=== PATIENT | male | born 1955 | race Two or more races ===

== ENCOUNTER 2019-09-25 07:22 | Emergency (ER) | payer OTHER ==
[~2019-09-25] VITALS: Ht 177.8 cm; Wt 108.9 kg
[2019-09-25] MEDS ORDERED: LEVSIN/SL0.125 MG SL (12:47)
[2019-09-25] MEDS ORDERED: PEPCID AC20 MG PO (12:47)
[2019-09-25] MEDS ORDERED: CIPRO500 MG PO (12:47)
[2019-09-25] MEDS ORDERED: FLAGYL500MG PO (12:47)
== END 2019-09-25 13:27 | disposition home or self-care (01) ==
LOC: ER 07:22
DX: K57.92 Diverticulitis of intestine, part unspecified, without perforation or abscess without bleeding (principal)

== ENCOUNTER 2023-03-16 09:20 | Inpatient (IN) | payer OTHER ==
[~2023-03-16 09:20] MED LIST: CIPRO500 MG PO; FLAGYL500MG PO; LEVSIN/SL0.125 MG SL; PEPCID AC20 MG PO
[2023-03-16 10:14] LABS: HEMATOCRIT 44.2 % (39.0-48.0); HEMOGLOBIN 14.9 g/dL (13-16.00); MEAN CELL VOLUME 92.8 fL (80.0-100.00); MEAN CORPUSCULAR HEMOGLOBIN 31.3 pg (27.00-32.0); MEAN CORPUSCULAR HGB CONC 33.8 g/dl (32.0-36.0); PLATELET COUNT 250 K/uL (150-450); RED BLOOD COUNT 4.76 M/uL (4.00-6.00); RED CELL DISTRIBUTION WIDTH 13.5 % (11.5-14.5)
[2023-03-16 10:38] LABS: INR 0.98; PARTIAL THROMBOPLASTIN TIME 30.3 SECONDS (22.0-34.0); PROTHROMBIN TIME 10.3 SECONDS (9.0-11.5)
[2023-03-16 10:41] LABS: PH,URINE 5.5 (5.0-8.0); URINE APPEARANCE Clear; URINE BACTERIA 28.9 uL (0.0-1933); URINE BILIRRUBIN Negative (NEGATIVE); URINE BLOOD Negative; URINE COLOR Yellow; URINE EPITHELIAL CELLS 4.6 uL (0.0-38.8); URINE GLUCOSE Negative (NEGATIVE); URINE LEUKOCYTE Small; URINE NITRATE Negative; URINE PROTEIN Negative (NEGATIVE); URINE UROBILINOGEN 0.2 E.U./dl; URINE WBC 24.8 uL (0.0-23.2)
[2023-03-16 10:42] LABS: URINE RBC 1.5 uL (0.0-20.8)
[2023-03-16 10:44] LABS: ALBUMIN 3.5 gm/dL (3.4-5.0); BILIRUBIN TOTAL 0.37 mg/dL (0.3-1.2); CALCIUM 9.6 mg/dL (8.5-10.1); CREATININE SERUM 0.78 mg/dL (0.70-1.30); GFR 98.98; GLOBULINA 3.4 G/DL (2.4-3.5); POTASSIUM 4.87 mEq/L (3.5-5.1); TOTAL PROTEIN 6.9 gm/dL (6.4-8.2)
[2023-03-16] MEDS ORDERED: [UNRECOGNIZED DRUG - OTHER] (12:00)
[2023-03-16] MEDS ORDERED: METFORMIN (12:00)
[2023-03-20] MEDS ORDERED: CEFTRIAXONE SODIUM 2,000 MG VIAL ONE (13:10)
[2023-03-20] MEDS ORDERED: METRONIDAZOLE/SODIUM CHLORIDE 500 MG/100 ML PIGGYBACK IV ONE ×2 (13:10→20:52)
[2023-03-20] MEDS ORDERED: ATORVASTATIN CA40 MG (13:45)
[2023-03-20] MEDS ORDERED: HYDROCHLOROTHIA25 MG (13:45)
[2023-03-20] MEDS ORDERED: HUMULIN 70100 UNIT/2 (13:45)
[2023-03-20] MEDS ORDERED: EZETIMIBE10 MG (13:45)
[2023-03-20] MEDS ORDERED: METFORMIN HCL1000 M3 (13:46)
[2023-03-20] MEDS ORDERED: TAMSULOSIN HCL0.4 MG (13:46)
[2023-03-20] MEDS ORDERED: GLIPIZIDE ER10 MG (13:46)
[2023-03-20] MEDS ORDERED: MORPHINE SULFATE 4 MG/ML VIAL IV PRN (15:15)
[2023-03-20] MEDS ORDERED: OxyCODONE HCL 5 MG TABLET (ROXICODONE) PO PRN (15:15)
[2023-03-20] MEDS ORDERED: ONDANSETRON HCL 2 MG/ML VIAL IV PRN (15:15)
[2023-03-20] MEDS ORDERED: DEXTROSE 50 % IN WATER 0.5 G/ML DISP.SYRIN IV PRN (15:15)
[2023-03-20] MEDS ORDERED: 0.9 % SODIUM CHLORIDE 1,000 ML IV SCH (15:15)
[2023-03-20] MEDS ORDERED: INSULIN LISPRO 1,000 UNIT/10 ML UNITS SUBCUTANEO SCH (16:00)
[2023-03-20] MEDS ORDERED: POLYETHYLENE GLYCOL 3350 17 GM BLIST.PACK PO SCH (17:00)
[2023-03-20] MEDS ORDERED: HYOSCYAMINE SULFATE 0.125 MG TAB.SUBL SL SCH (17:00)
[2023-03-20] MEDS ORDERED: METRONIDAZOLE/SODIUM CHLORIDE 500 MG/100 ML PIGGYBACK IV SCH (17:00)
[2023-03-20] MEDS ORDERED: GABAPENTIN 300 MG CAPSULE PO SCH (17:00)
[2023-03-20] MEDS ORDERED: ACETAMINOPHEN 500 MG GEL..CAP PO SCH (20:00)
[2023-03-20] MEDS ORDERED: FAMOTIDINE/PF 20 MG/2 ML VIAL ONE (20:52)
[2023-03-20] MEDS ORDERED: FAMOTIDINE/PF 20 MG/2 ML VIAL IV PUSH SCH (21:00)
[2023-03-20 21:49] LABS: HEMATOCRIT 44.7 % (39.0-48.0); HEMOGLOBIN 15.2 g/dL (13-16.00); MEAN CELL VOLUME 91.2 fL (80.0-100.00); MEAN CORPUSCULAR HEMOGLOBIN 31.1 pg (27.00-32.0); MEAN CORPUSCULAR HGB CONC 34.1 g/dl (32.0-36.0); PLATELET COUNT 256 K/uL (150-450); RED CELL DISTRIBUTION WIDTH 13.5 % (11.5-14.5)
[2023-03-20 22:24] LABS: ALBUMIN 3.4 gm/dL (3.4-5.0); CREATININE SERUM 1.16 mg/dL (0.70-1.30); GFR 62.61; MAGNESIUM 1.9 mg/dL (1.8-2.4); PHOSPHOROUS 3.2 mg/dL (2.5-4.9); POTASSIUM 4.93 mEq/L (3.5-5.1)
[2023-03-21] MEDS ORDERED: METRONIDAZOLE/SODIUM CHLORIDE 500 MG/100 ML PIGGYBACK IV ONE (02:11)
[2023-03-21] MEDS ORDERED: GABAPENTIN 300 MG CAPSULE PO ONE (02:11)
[2023-03-21] MEDS ORDERED: INSULIN LISPRO 1,000 UNIT/10 ML UNITS SUBCUTANEO ONE (02:40)
[2023-03-21 07:21] LABS: ALBUMIN 2.7 gm/dL (3.4-5.0); CALCIUM 8.2 mg/dL (8.5-10.1); CREATININE SERUM 1.08 mg/dL (0.70-1.30); GFR 67.99; MAGNESIUM 2.1 mg/dL (1.8-2.4); PHOSPHOROUS 3.2 mg/dL (2.5-4.9); POTASSIUM 4.37 mEq/L (3.5-5.1)
[2023-03-21 07:38] LABS: HEMATOCRIT 40.2 % (39.0-48.0); HEMOGLOBIN 13.8 g/dL (13-16.00); MEAN CELL VOLUME 92.3 fL (80.0-100.00); MEAN CORPUSCULAR HEMOGLOBIN 31.7 pg (27.00-32.0); MEAN CORPUSCULAR HGB CONC 34.4 g/dl (32.0-36.0); PLATELET COUNT 241 K/uL (150-450); RED BLOOD COUNT 4.36 M/uL (4.00-6.00); RED CELL DISTRIBUTION WIDTH 13.4 % (11.5-14.5)
[2023-03-21] MEDS ORDERED: KETOROLAC TROMETHAMINE 30 MG VIAL IV ONE (08:30)
[2023-03-21] MEDS ORDERED: ENOXAPARIN SODIUM 40 MG/0.4 ML SYRINGE SUBCUTANEO SCH (17:00)
[2023-03-22] MEDS ORDERED: ENOXAPARIN SODIUM 40 MG/0.4 ML SYRINGE SUBCUTANEO SCH (09:00)
[2023-03-23] MEDS ORDERED: TRAM1TAB98 PO (15:06)
[2023-03-23] MEDS ORDERED: PEPCID AC20 MG PO (15:06)
== END 2023-03-23 17:59 | disposition home or self-care (01) | DRG 331 ==
LOC: SURH 03-20 07:16 → O/R 03-20 07:16 → SURG 03-20 09:45 → SURH 03-20 19:35
PROVIDERS: ADMIT Surgery; ATTEND Surgery
PROC: 0DTN4ZZ Resection of Sigmoid Colon, Percutaneous Endoscopic Approach (ICD-10-PCS; principal; 2023-03-20)
PROC: 0DBP4ZZ Excision of Rectum, Percutaneous Endoscopic Approach (ICD-10-PCS; 2023-03-20)
PROC: 0DJD8ZZ Inspection of Lower Intestinal Tract, Via Natural or Artificial Opening Endoscopic (ICD-10-PCS; 2023-03-20)
DX: K57.32 Diverticulitis of large intestine without perforation or abscess without bleeding (principal); R19.4 Change in bowel habit; R10.32 Left lower quadrant pain; K66.0 Peritoneal adhesions (postprocedural) (postinfection); I10 Essential (primary) hypertension; E11.9 Type 2 diabetes mellitus without complications; Z79.84 Long term (current) use of oral hypoglycemic drugs; Z79.4 Long term (current) use of insulin